=== PATIENT | male | born 1965 | race Caucasian/White ===

== ENCOUNTER → 2019-04-28 | Outpatient (CLI) | payer BC ==
[~2019-04-28] MED LIST: HYDACE5 PO; LISI10 PO; PRAV20
== END | disposition home or self-care (01) ==
LOC: PLD 06:33 → LAB SHORT 06:33
DX: D48.5 Neoplasm of uncertain behavior of skin (principal)
CPT/HCPCS: 88305

== ENCOUNTER 2021-04-18 14:34 | Emergency (ER) | payer BC ==
[~2021-04-18] VITALS: Ht 182.9 cm; Wt 92.5 kg
[~2021-04-18 14:34] MED LIST changes: -LISI10 PO; +LISI20 PO; -PRAV20; +PRAV20 PO
[2021-04-18 15:04] LABS: BASOPHILS ABSOLUTE AUTO 0.01 K/mm3 (0.00-0.23); BASOPHILS PERCENT AUTO 0 % (0-2); EOSINOPHILS PERCENT AUTO 0 % (0-6); Hematocrit 38.4 % (37.0-53.0); Hemoglobin 13.8 g/dL (13.5-17.5); IMMATURE GRAN ABSOLUTE AUTO 0.14 K/mm3 (0.00-0.10); IMMATURE GRAN PERCENT AUTO 2 % (0-1); LYMPHOCYTES ABSOLUTE AUTO 0.57 K/mm3 (0.84-5.20); LYMPHOCYTES PERCENT AUTO 9 % (21-46); MONOCYTES ABSOLUTE AUTO 0.33 K/mm3 (0.16-1.47); MONOCYTES PERCENT AUTO 5 % (4-13); Mean Corpuscular HGB Conc 35.9 g/dL (31.5-36.5); Mean Corpuscular Volume 89 fL (80-100); Mean Platelet Volume 9.4 fL (9.1-12.4); NEUTROPHILS ABSOLUTE AUTO 5.59 K/mm3 (1.96-9.15); NEUTROPHILS PERCENT AUTO 84 % (41-73); Platelet Count 244 K/mm3 (150-400); RDW Coefficient Variation 11.5 % (11.7-14.2); RDW Standard Deviation 37.6 fL (35.1-46.3); Red Blood Cell Count 4.31 M/mm3 (4.30-5.90); White Blood Cell Count 6.64 K/mm3 (4.00-11.30)
[2021-04-18 15:26] LABS: Alanine Aminotransfer (ALT/SGP 72 U/L (12-78); Albumin, Blood 2.5 g/dL (3.4-5.0); Albumin/Globulin Ratio 0.6 (0.8-1.8); Alk Phos 51 U/L (50-136); Anion Gap 9 mmol/L (6-16); Aspartate Aminotrans (AST/SGOT 73 U/L (12-37); Bilirubin, Total 0.5 mg/dL (0.1-1.0); Blood Urea Nitrogen 11 mg/dL (8-24); Bun/Creatinine Ratio 10.5 (12.0-20.0); CO2, Blood 25 mmol/L (21-32); Calcium, Blood 7.6 mg/dL (8.5-10.1); Chloride, Blood 96 mmol/L (98-108); Creatinine, Blood 1.05 mg/dL (0.60-1.20); Globulin, Blood 4.1 g/dL (2.2-4.0); Glomerular Filtration Rate >60 (60-); Glucose, Blood 124 mg/dL (70-99); Potassium, Blood 3.7 mmol/L (3.5-5.5); Sodium, Blood 130 mmol/L (136-145); Total Protein, Blood 6.6 g/dL (6.4-8.2)
[2021-04-18] MEDS ORDERED: DEXA2 PO (22:23)
[2021-04-18] MEDS ORDERED: LOPE2C PO (22:23)
[2021-04-18] MEDS ORDERED: ONDA4ODT MM (22:23)
== END 2021-04-19 00:30 | disposition home or self-care (01) ==
LOC: ER 14:34
PROVIDERS: Physician Assistant
DX: U07.1 COVID-19 (principal); J12.82 Pneumonia due to coronavirus disease 2019; E87.1 Hypo-osmolality and hyponatremia; B34.9 Viral infection, unspecified; R00.0 Tachycardia, unspecified; R11.0 Nausea; R19.7 Diarrhea, unspecified; R09.02 Hypoxemia; I10 Essential (primary) hypertension; Z79.899 Other long term (current) drug therapy
CPT/HCPCS: 71045; 80053; 83690; 85025; 93005; 93010; 96374; 96375; 99284-25; A9270; J1100; J1885; J2405; J7030

== ENCOUNTER 2021-04-22 20:55 | Inpatient (IN) | payer BC ==
[~2021-04-22] VITALS: Ht 182.9 cm; Wt 87.2 kg
[~2021-04-22 20:55] MED LIST changes: +DEXA2 PO; +LOPE2C PO; +ONDA4ODT MM
[2021-04-22 21:22] LABS: Hematocrit 39.1 % (37.0-53.0); Hemoglobin 13.7 g/dL (13.5-17.5); Mean Corpuscular HGB 31.8 pg (26.0-34.0); Mean Corpuscular Volume 91 fL (80-100); Mean Platelet Volume 9.7 fL (9.1-12.4); NRBC Auto 0.6 /100 WBC (0.0-0.2); Platelet Count 173 K/mm3 (150-400); RDW Coefficient Variation 11.9 % (11.7-14.2); RDW Standard Deviation 39.5 fL (35.1-46.3); Red Blood Cell Count 4.31 M/mm3 (4.30-5.90); White Blood Cell Count 16.73 K/mm3 (4.00-11.30)
[2021-04-22 21:40] LABS: Alanine Aminotransfer (ALT/SGP 61 U/L (12-78); Albumin, Blood 2.7 g/dL (3.4-5.0); Albumin/Globulin Ratio 0.7 (0.8-1.8); Alk Phos 87 U/L (50-136); Anion Gap 9 mmol/L (6-16); Aspartate Aminotrans (AST/SGOT 55 U/L (12-37); Bilirubin, Total 1.1 mg/dL (0.1-1.0); Blood Urea Nitrogen 16 mg/dL (8-24); Bun/Creatinine Ratio 16.3 (12.0-20.0); CO2, Blood 20 mmol/L (21-32); Calcium, Blood 7.9 mg/dL (8.5-10.1); Chloride, Blood 102 mmol/L (98-108); Creatinine, Blood 0.98 mg/dL (0.60-1.20); Ferritin, Serum 1222 ng/mL (26-388); Globulin, Blood 3.7 g/dL (2.2-4.0); Glomerular Filtration Rate >60 (60-); Glucose, Blood 151 mg/dL (70-99); Potassium, Blood 4.4 mmol/L (3.5-5.5); Sodium, Blood 131 mmol/L (136-145); Total Protein, Blood 6.4 g/dL (6.4-8.2)
[2021-04-22 21:47] LABS: Lactate Dehydrogenase (Ld),Bld 1132 U/L (100-240)
[2021-04-22 21:53] LABS: BAND PERCENT MAN 4 % (0-8); BASOPHILS PERCENT MAN 0 % (0-2); EOSINOPHILS PERCENT MAN 0 % (0-6); LYMPHOCYTES ABSOLUTE MAN 1.17 K/mm3 (0.84-5.20); LYMPHOCYTES PERCENT MAN 7 % (21-46); MONOCYTES ABSOLUTE MAN 0.33 K/mm3 (0.16-1.47); MONOCYTES PERCENT MAN 2 % (4-13); NEUTROPHILS ABSOLUTE MAN 15.22 K/mm3 (1.96-9.15); SEG NEUTROPHILS PERCENT MAN 87 % (41-73); TOTAL CELLS COUNTED 100
[2021-04-23 06:34] LABS: Hematocrit 39.8 % (37.0-53.0); Hemoglobin 13.9 g/dL (13.5-17.5); Mean Corpuscular HGB 32.3 pg (26.0-34.0); Mean Corpuscular HGB Conc 34.9 g/dL (31.5-36.5); Mean Corpuscular Volume 93 fL (80-100); Mean Platelet Volume 9.5 fL (9.1-12.4); NRBC ABSOLUTE 0.05 K/mm3 (0.00-0.02); NRBC Auto 0.4 /100 WBC (0.0-0.2); Platelet Count 165 K/mm3 (150-400); RDW Coefficient Variation 12.2 % (11.7-14.2); RDW Standard Deviation 41.4 fL (35.1-46.3); White Blood Cell Count 12.65 K/mm3 (4.00-11.30)
[2021-04-23 06:55] LABS: Alanine Aminotransfer (ALT/SGP 54 U/L (12-78); Albumin, Blood 2.6 g/dL (3.4-5.0); Albumin/Globulin Ratio 0.7 (0.8-1.8); Alk Phos 78 U/L (50-136); Anion Gap 8 mmol/L (6-16); Aspartate Aminotrans (AST/SGOT 34 U/L (12-37); Bilirubin, Total 0.8 mg/dL (0.1-1.0); Blood Urea Nitrogen 18 mg/dL (8-24); Bun/Creatinine Ratio 19.7 (12.0-20.0); CO2, Blood 22 mmol/L (21-32); Calcium, Blood 8.3 mg/dL (8.5-10.1); Chloride, Blood 105 mmol/L (98-108); Creatinine, Blood 0.91 mg/dL (0.60-1.20); Globulin, Blood 3.6 g/dL (2.2-4.0); Glomerular Filtration Rate >60 (60-); Glucose, Blood 141 mg/dL (70-99); Potassium, Blood 4.6 mmol/L (3.5-5.5); Sodium, Blood 135 mmol/L (136-145); Total Protein, Blood 6.2 g/dL (6.4-8.2)
[2021-04-23 07:13] LABS: BAND PERCENT MAN 1 % (0-8); BASOPHILS PERCENT MAN 0 % (0-2); EOSINOPHILS PERCENT MAN 0 % (0-6); LYMPHOCYTES ABSOLUTE MAN 0.75 K/mm3 (0.84-5.20); LYMPHOCYTES PERCENT MAN 6 % (21-46); MONOCYTES ABSOLUTE MAN 0.88 K/mm3 (0.16-1.47); MONOCYTES PERCENT MAN 7 % (4-13); MYELOCYTE ABSOLUTE MAN 1.01 K/mm3 (0.00-0.00); MYELOCYTE PERCENT MAN 8 % (0-0); NEUTROPHILS ABSOLUTE MAN 9.99 K/mm3 (1.96-9.15); SEG NEUTROPHILS PERCENT MAN 78 % (41-73); TOTAL CELLS COUNTED 100
--- NOTE | 2021-04-24 05:03 | NUR ---
shift summary pt rested well through night after being admitted around 0100. alert and oriented, able to make needs known. cooperative with plan of care. sats >90% on 15L high flow nasal cannula, weaned down 13L high flow nasal cannula. tele reads nsr to sinus bertha, 55 at this time. voids to urinal, stand by assist to bathroom. fairly independent in room. some desaturations with ambulation. no c/o pain. no skin issues. vss. call light within reach, bed in lowest position. will continue to monitor.
[2021-04-24 05:10] LABS: Hematocrit 40.7 % (37.0-53.0); Hemoglobin 13.8 g/dL (13.5-17.5); Mean Corpuscular HGB 31.9 pg (26.0-34.0); Mean Corpuscular HGB Conc 33.9 g/dL (31.5-36.5); Mean Corpuscular Volume 94 fL (80-100); Mean Platelet Volume 9.8 fL (9.1-12.4); NRBC ABSOLUTE 0.04 K/mm3 (0.00-0.02); NRBC Auto 0.2 /100 WBC (0.0-0.2); Platelet Count 147 K/mm3 (150-400); RDW Coefficient Variation 12.1 % (11.7-14.2); Red Blood Cell Count 4.33 M/mm3 (4.30-5.90); White Blood Cell Count 16.73 K/mm3 (4.00-11.30)
[2021-04-24 05:38] LABS: Alanine Aminotransfer (ALT/SGP 51 U/L (12-78); Albumin, Blood 2.4 g/dL (3.4-5.0); Albumin/Globulin Ratio 0.7 (0.8-1.8); Alk Phos 63 U/L (50-136); Anion Gap 4 mmol/L (6-16); Aspartate Aminotrans (AST/SGOT 27 U/L (12-37); Bilirubin, Total 0.6 mg/dL (0.1-1.0); Blood Urea Nitrogen 26 mg/dL (8-24); CO2, Blood 27 mmol/L (21-32); Chloride, Blood 104 mmol/L (98-108); Creatinine, Blood 1.04 mg/dL (0.60-1.20); Globulin, Blood 3.5 g/dL (2.2-4.0); Glomerular Filtration Rate >60 (60-); Glucose, Blood 127 mg/dL (70-99); Potassium, Blood 4.9 mmol/L (3.5-5.5); Sodium, Blood 135 mmol/L (136-145); Total Protein, Blood 5.9 g/dL (6.4-8.2)
[2021-04-24 06:09] LABS: BASOPHILS PERCENT MAN 0 % (0-2); EOSINOPHILS PERCENT MAN 0 % (0-6); LYMPHOCYTES % ATYPICAL MANUAL 1 % (0-0); LYMPHOCYTES ABSOLUTE MAN 0.83 K/mm3 (0.84-5.20); LYMPHOCYTES PERCENT MAN 4 % (21-46); MONOCYTES PERCENT MAN 6 % (4-13); MYELOCYTE ABSOLUTE MAN 0.16 K/mm3 (0.00-0.00); MYELOCYTE PERCENT MAN 1 % (0-0); NEUTROPHILS ABSOLUTE MAN 14.72 K/mm3 (1.96-9.15); SEG NEUTROPHILS PERCENT MAN 88 % (41-73); TOTAL CELLS COUNTED 100
--- NOTE | 2021-04-24 18:35 | NUR ---
SHIFT SUMMARY PT ALERT AND ORIENTED X 4. HR STABLE. BP STABLE. NO CP OR PRESSURE REPORTED. PT IND IN ROOM. OXYGEN SATURATION MAINTAINED ABOVE 92% ON 15 L OF OXYGEN VIA HIGH FLOW NC. WILL CONT TO MONITOR UNTIL REPORT GIVEN TO NIGHTSHIFT RN.
[2021-04-25 04:55] LABS: BASOPHILS PERCENT AUTO 1 % (0-2); EOSINOPHILS ABSOLUTE AUTO 0.17 K/mm3 (0.00-0.68); EOSINOPHILS PERCENT AUTO 1 % (0-6); Hematocrit 38.8 % (37.0-53.0); Hemoglobin 13.4 g/dL (13.5-17.5); IMMATURE GRAN PERCENT AUTO 7 % (0-1); LYMPHOCYTES ABSOLUTE AUTO 1.92 K/mm3 (0.84-5.20); LYMPHOCYTES PERCENT AUTO 11 % (21-46); MONOCYTES ABSOLUTE AUTO 1.31 K/mm3 (0.16-1.47); MONOCYTES PERCENT AUTO 8 % (4-13); Mean Corpuscular HGB 32.6 pg (26.0-34.0); Mean Corpuscular HGB Conc 34.5 g/dL (31.5-36.5); Mean Corpuscular Volume 94 fL (80-100); Mean Platelet Volume 9.6 fL (9.1-12.4); NEUTROPHILS ABSOLUTE AUTO 12.44 K/mm3 (1.96-9.15); NEUTROPHILS PERCENT AUTO 73 % (41-73); Platelet Count 152 K/mm3 (150-400); RDW Coefficient Variation 12.2 % (11.7-14.2); RDW Standard Deviation 41.7 fL (35.1-46.3); Red Blood Cell Count 4.11 M/mm3 (4.30-5.90); White Blood Cell Count 17.04 K/mm3 (4.00-11.30)
[2021-04-25 05:10] LABS: International Normalized Ratio 1.1; Prothrombin Time Results 11.8 Sec (9.7-11.5)
[2021-04-25 05:16] LABS: Anion Gap 5 mmol/L (6-16); Blood Urea Nitrogen 27 mg/dL (8-24); CO2, Blood 27 mmol/L (21-32); Calcium, Blood 7.2 mg/dL (8.5-10.1); Chloride, Blood 104 mmol/L (98-108); Glomerular Filtration Rate >60 (60-); Glucose, Blood 102 mg/dL (70-99); Potassium, Blood 4.5 mmol/L (3.5-5.5); Sodium, Blood 136 mmol/L (136-145)
[2021-04-25 05:39] LABS: BASOPHILS PERCENT MAN 0 % (0-2); EOSINOPHILS ABSOLUTE MAN 0.17 K/mm3 (0.00-0.68); EOSINOPHILS PERCENT MAN 1 % (0-6); LYMPHOCYTES ABSOLUTE MAN 1.53 K/mm3 (0.84-5.20); LYMPHOCYTES PERCENT MAN 9 % (21-46); METAMYELOCYTE ABSOLUTE MAN 0.51 K/mm3 (0.00-0.00); METAMYELOCYTE PERCENT MAN 3 % (0-0); MONOCYTES ABSOLUTE MAN 0.85 K/mm3 (0.16-1.47); MONOCYTES PERCENT MAN 5 % (4-13); MYELOCYTE ABSOLUTE MAN 0.17 K/mm3 (0.00-0.00); MYELOCYTE PERCENT MAN 1 % (0-0); SEG NEUTROPHILS PERCENT MAN 81 % (41-73); TOTAL CELLS COUNTED 100
--- NOTE | 2021-04-25 06:13 | NUR ---
SHIFT SUMMARY NO ACUTE CHANGES THIS SHIFT. VSS. O2 SATS MAINTAINING OVER 98% OF 11L NC. PT ENCOURAGED TO PRONE AND CHANGE POSITIONS THROUGHOUT SHIFT. PT A+0X4, PLEASANT AND RESPONSIVE TO CARE. PT LEFT IN BED RESTING WITH CALL ALARM AT SIGN
--- NOTE | 2021-04-25 09:36 | NUR ---
PATIENT ALERT AND ORIENTED X4. NEURO WNL. TELE SHOWING SINUS WITH HR 80'S. DENIES CHEST PAIN/PRESSURE. VITAL SIGNS STABLE. NO SIGNS OF EDEMA. ON 11L HIGH FLOW NASAL CANNULA SATING MID-HIGH 90'S. DESATS WITH ACTIVITY. WILL TITRATE ABLE. BOWEL TONES PRESENT. USING BATHROOM IND. EATING AND DRINKING WELL. DENIES OVERALL PAINS. CALL LIGHT IN REACH. DENIES NEEDS AT THIS TIME. WILL CONTINUE TO MONITOR.
[2021-04-25] MEDS ORDERED: ACET325 PO (12:35)
[2021-04-25] MEDS ORDERED: ASCO500 PO (12:36)
[2021-04-25] MEDS ORDERED: VISBIOME 112.51 EACH PO (12:37)
[2021-04-25] MEDS ORDERED: THERA-D2000 UNIT PO (12:38)
[2021-04-25] MEDS ORDERED: ZINC220 PO (12:38)
[2021-04-25] MEDS ORDERED: INSULIN LI100 UNIT/6 SC (12:39)
--- NOTE | 2021-04-25 17:11 | NUR ---
DISCHARGE: NO ACUTE CHANGES. VITAL SIGNS STABLE. HOME O2 EVAL DONE. 11L NEEDED. DISCHARGE MEDICATIONS AND INSTRUCTIONS REVIEWED. QUESTIONS ANSWERED. IV TAKEN OUT PER PROTOCOL. TELE REMOVED. PATIENT LEFT UNIT VIA WHEELCHAIR WITH ALL PERSONAL BELONGINGS AND [facility] OXYGEN TANK.
== END 2021-04-25 17:10 | disposition home or self-care (01) | DRG 871 ==
LOC: ER 20:55 → ERHOLD 23:01 → SURS 04-24 00:07
PROVIDERS: Emergency Medicine; Family Medicine; Internal Medicine; ADMIT Internal Medicine
PROC: 3E0333Z Introduction of Anti-inflammatory into Peripheral Vein, Percutaneous Approach (ICD-10-PCS; principal; 2021-04-22)
PROC: XW033E5 Introduction of Remdesivir Anti-infective into Peripheral Vein, Percutaneous Approach, New Technology Group 5 (ICD-10-PCS; 2021-04-22)
PROC: 8E0ZXY6 Isolation (ICD-10-PCS; 2021-04-22)
DX: A41.89 Other specified sepsis (principal); U07.1 COVID-19; J12.82 Pneumonia due to coronavirus disease 2019; J96.01 Acute respiratory failure with hypoxia; E87.1 Hypo-osmolality and hyponatremia; I10 Essential (primary) hypertension; R73.9 Hyperglycemia, unspecified; T38.0X5A Adverse effect of glucocorticoids and synthetic analogues, initial encounter; R19.7 Diarrhea, unspecified; E78.5 Hyperlipidemia, unspecified; Z98.890 Other specified postprocedural states; Z79.899 Other long term (current) drug therapy
CPT/HCPCS: 36415; 71045; 80048; 80053; 82728; 82947; 83036; 83615; 83880; 84145; 85025; 85610; 86140; 93005; 93010; 94762; 96365; 96375; 99285-25; A9270; J1100; J1650

== ENCOUNTER 2022-10-22 06:04 | Day surgery (SDC) | payer BC ==
[~2022-10-22] VITALS: Ht 182.9 cm; Wt 100.2 kg
[~2022-10-22 06:04] MED LIST changes: +ACET325 PO; +ASCO500 PO; +IBUP800 PO; +INSULIN LI100 UNIT/6 SC; +MULVITA PO; +THERA-D2000 UNIT PO; +VISBIOME 112.51 EACH PO; +ZINC220 PO
--- NOTE | 2022-10-22 11:48 | NUR ---
PT ARRIVED TO THE ROOM AT 1015. PT ALERT AND ORIENTED AT TIME OF ARRIVAL TO THE ROOM. PT DENIES PAIN. SPINAL ANESTHESIA SITE WNL. DECREASED SENSATION AND MOVEMENT TO BLE R/T SPINAL ANESTHESIA. VSS.
--- NOTE | 2022-10-22 12:40 | NUR ---
DUNG WELL[facility] NOTIFIED OF DECREASED PULSES TO THE RLE. TIBIAL AND PEDAL PULSES FOUND BY DOPPLER. MOVEMENT, SENSATION, COLOR AND TEMPERATURE ARE EQUAL TO BLE. WILL CONTINUE TO MONITOR.
--- NOTE | 2022-10-22 16:22 | NUR ---
SHIFT SUMMARY PT IS POD#0 FROM [facility] WITH DR. MEDINA. PAIN MANAGED WITH TYLENOL, TORADOL AND OXYCODONE. PT WORKED WITH THERAPY AND IS A 1 PERSON ASSIST WHEN OOB. PT IS TOLERATING PO. PT ABLE TO VOID POST OP. PT CONTINUES TO HAVE A WEAK PULSE TO HIS RLE, DUNG WELLS IS AWARE.
--- NOTE | 2022-10-22 20:52 | NUR ---
RIGHT PEDAL PULSE: RIGHT PEDAL PULSE WEAKER THAN LEFT. CAP REFILL WNL, FOOT PINK/COOL. LEFT FOOT ALSO PINK/COOL. SENSATION INTACT, PT DENIES N/T. IS ABLE TO FLEX FEET/LIFT LEG. PT C/O INCISIONAL R HIP PAIN, DENIES CALF PAIN/TENDERNESS. BRIE NUNO AND SCDS IN PLACE. PER PT AND DAY RN, 'S ARE AWARE OF WEAKER PULSES. PT EDUCATED TO NOTIFY NURSING STAFF FOR CHANGES/CONCERNS.
[2022-10-23 05:46] LABS: BASOPHILS ABSOLUTE AUTO 0.04 K/mm3 (0.00-0.23); BASOPHILS PERCENT AUTO 0 % (0-2); EOSINOPHILS ABSOLUTE AUTO 0.11 K/mm3 (0.00-0.68); EOSINOPHILS PERCENT AUTO 1 % (0-6); Hematocrit 39.7 % (37.0-53.0); Hemoglobin 13.6 g/dL (13.5-17.5); IMMATURE GRAN ABSOLUTE AUTO 0.05 K/mm3 (0.00-0.10); IMMATURE GRAN PERCENT AUTO 1 % (0-1); LYMPHOCYTES PERCENT AUTO 23 % (21-46); MONOCYTES ABSOLUTE AUTO 0.81 K/mm3 (0.16-1.47); MONOCYTES PERCENT AUTO 9 % (4-13); Mean Corpuscular HGB 31.5 pg (26.0-34.0); Mean Corpuscular HGB Conc 34.3 g/dL (31.5-36.5); Mean Corpuscular Volume 92 fL (80-100); Mean Platelet Volume 9.1 fL (9.1-12.4); NEUTROPHILS ABSOLUTE AUTO 6.01 K/mm3 (1.96-9.15); NEUTROPHILS PERCENT AUTO 66 % (41-73); Platelet Count 245 K/mm3 (150-400); RDW Coefficient Variation 11.4 % (11.7-14.2); RDW Standard Deviation 38.7 fL (35.1-46.3); Red Blood Cell Count 4.32 M/mm3 (4.30-5.90); White Blood Cell Count 9.12 K/mm3 (4.00-11.30)
[2022-10-23 05:59] LABS: Bun/Creatinine Ratio 13.5 (12.0-20.0); Calcium, Blood 8.4 mg/dL (8.5-10.1); Creatinine, Blood 1.11 mg/dL (0.60-1.20); Potassium, Blood 4.4 mmol/L (3.5-5.5)
--- NOTE | 2022-10-23 06:34 | NUR ---
POD 1 S/P R KAILYN. PT VSS T/O NIGHT. AQUACEL DRESSING CDI, MILD SWELLING NOTED TO RIGHT HIP. RIGHT PEDAL PULSE REMAINS WEAKER THAN LEFT BUT IS MORE PALPABLE THIS AM. SENSATION AND CAP REFILL WNL, BLE PINK/COOL. PAIN MGD W/2 OXYCODONE AND SCHEDULED TYLENOL AND TORADOL. PT EARLENE REG PO, REP MILD NAUSEA THIS AM, ZOFRAN GIVEN W/REP RELIEF. PT AMB IN HALLS X2 THIS SHIFT, EARLENE WELL. PTLAN TO MOBILIZE W/PT AND D/C HOME.
[2022-10-23] MEDS ORDERED: Percocet 5-3251 EACH PO (08:48)
[2022-10-23] MEDS ORDERED: ASPI81CH PO (08:49)
--- NOTE | 2022-10-23 11:00 | NUR ---
PATIENT IS BEING WHEELCHAIRED OUT TO HIS WIFES CAR TO BE TAKEN HOME. ALL PERSONAL ITEMS IN THE ROOM GATHERED. PATIENT IS TOLERATING PO INTAKE AND IS VOIDING.
== END 2022-10-23 11:00 | disposition home or self-care (01) ==
LOC: ORSCMMR 06:04 → ORD 07:30 → ORSCMMR 10:30 → SURS 11:05 → ORSCMMR 10-23 11:00
PROVIDERS: Orthopaedic Surgery
PROC: 0SR90JZ Replacement of Right Hip Joint with Synthetic Substitute, Open Approach (ICD-10-PCS; principal; 2022-10-22 07:30)
DX: M16.11 Unilateral primary osteoarthritis, right hip (principal); M87.9 Osteonecrosis, unspecified; I10 Essential (primary) hypertension; Z79.899 Other long term (current) drug therapy
CPT/HCPCS: 36415; 72170; 80048; 85025; 97110; 97116; 97161; A9270; C1776; J0171; J0690; J0735; J1100; J1170; J1885; J2250; J2370; J2405; J2704; J2795; J3010; J3370; J7120

== ENCOUNTER 2024-09-08 22:10 | Emergency (ER) | payer OTHER ==
[~2024-09-08] VITALS: Ht 182.9 cm; Wt 99.8 kg
[~2024-09-08 22:10] MED LIST changes: +ASPI81CH PO; +Percocet 5-3251 EACH PO
[2024-09-08 22:23] VITALS: BP 148/98
[2024-09-08] MEDS ORDERED: Diphth,Pertuss(Acell),Tet Vac 0.5 ML VIAL IM ONE (23:50)
[2024-09-08] MEDS ORDERED: LOSARTAN POTASS25 M2 PO (23:50)
[2024-09-08] MEDS ORDERED: NIFEDIPINE 30 MG (23:51)
[2024-09-08] MEDS ORDERED: PRAVASTATIN SOD20 MG PO (23:51)
[2024-09-09] MEDS ORDERED: HYDROcodone 5-APAP 325 TAB PO ONE (00:40)
[2024-09-09] MEDS ORDERED: Ketorolac Tromethamine 10 MG Tab PO ONE (00:40)
== END 2024-09-09 01:00 | disposition home or self-care (01) ==
LOC: ER 22:10
DX: T23.231A Burn of second degree of multiple right fingers (nail), not including thumb, initial encounter (principal); T23.212A Burn of second degree of left thumb (nail), initial encounter; I10 Essential (primary) hypertension; X08.8XXA Exposure to other specified smoke, fire and flames, initial encounter; Z79.82 Long term (current) use of aspirin; Z79.899 Other long term (current) drug therapy
CPT/HCPCS: 90471; 90715; 99283; A9270